=== PATIENT | female | born 1950 | race Two or more races ===

== ENCOUNTER 2025-07-02 12:58 | Inpatient (IN) | payer OTHER ==
[~2025-07-02] VITALS: Ht 149.9 cm; Wt 26.8 kg
[2025-07-02] MEDS ORDERED: METFORMIN HCL500 M3 PO (13:53)
[2025-07-02] MEDS ORDERED: FAMOTIDINE/PF 20 MG/2 ML VIAL IV ONE (15:00)
[2025-07-02] MEDS ORDERED: ONDANSETRON HCL 2 MG/ML VIAL IV ONE (15:00)
[2025-07-02] MEDS ORDERED: 0.9 % SODIUM CHLORIDE 500 ML IV ONE (15:00)
[2025-07-02] MEDS ORDERED: LABETALOL HCL 200 MG/40 ML VIAL IV ONE (15:15)
[2025-07-02] MEDS ORDERED: INSULIN REGULAR, HUMAN 1,000 UNIT/10 ML UNITS IV ONE ×2 (15:15→20:30)
[2025-07-02] MEDS ORDERED: LABETALOL HCL 100 MG/20 ML ML ONE (15:31)
[2025-07-02] MEDS ORDERED: ONDANSETRON HCL 2 MG/ML VIAL ONE (15:31)
[2025-07-02] MEDS ORDERED: FAMOTIDINE/PF 20 MG/2 ML VIAL ONE (15:33)
[2025-07-02 16:12] LABS: BASO % 0.2 % (0.1-1.2); EOS # 0.00 (0.04-0.54); EOS % 0.0 % (0.7-7.0); LYMPH # 0.94 (1.18-3.74); LYMPH % 7.4 % (19.3-53.1); MEAN PLATELET VOLUME 11.40 fl (9.4-12.4); MONO # 0.62 (0.24-0.82); MONO % 4.9 % (4.7-12.5); NEUT # 11.14 (1.56-6.13); NEUT % 87.2 % (34.0-71.1); RED CELL DISTRIBUTION WIDTH 12.7 % (11.6-14.4)
[2025-07-02 16:31] LABS: INR 1.09
[2025-07-02 17:17] LABS: ALT/SGPT 29.0 U/L (12-78); AST/SGOT 17.0 U/L (15-37); BILIRUBIN TOTAL 0.34 mg/dL (0.3-1.2); BILIRUBIN,CONJUGATED 0.11 mg/dL (0.0-0.2); BUN CREA RATIO 37.0 (7.0-25.0); CREATININE SERUM 0.76 mg/dL (0.55-1.02); GFR 74.81; GLOBULINA 3.7 G/DL (2.4-3.5); OSMOLALITY SERUM 308.0 MOSM/KG (275-295)
[2025-07-02 17:18] LABS: URINE APPEARANCE Clear; URINE BILIRRUBIN Negative (NEGATIVE); URINE BLOOD Small; URINE COLOR Yellow; URINE KETONE 15 (NEGATIVE); URINE LEUKOCYTE Negative; URINE NITRATE Negative; URINE UROBILINOGEN 0.2 E.U./dl
[2025-07-02 17:22] LABS: URINE BACTERIA 50.3 uL (0.0-1933); URINE EPITHELIAL CELLS 3.9 uL (0.0-38.8); URINE RBC 43.9 uL (0.0-20.8); URINE WBC 2.6 uL (0.0-23.2)
[2025-07-02 17:54] LABS: GLUCOSE FASTING 451.0 mg/dL (65-100)
[2025-07-02 18:28] LABS: URINE CAST 0.29 uL (0.0-1.40); URINE GLUCOSE >=1000 MG/DL (NEGATIVE); URINE PROTEIN 100 (NEGATIVE)
[2025-07-02] MEDS ORDERED: ENALAPRILAT DIHYDRATE 1.25 MG/ML VIAL IV ONE ×2 (20:30→21:13)
[2025-07-02] MEDS ORDERED: PIPERACILLIN/TAZOBACTAM SODIUM 3.375 GM VIAL IV ONE ×2 (22:30→23:50)
[2025-07-03] MEDS ORDERED: 0.9 % SODIUM CHLORIDE 1,000 ML IV SCH (14:00)
[2025-07-03] MEDS ORDERED: CEFTRIAXONE SODIUM 2,000 MG in 0.9 % SODIUM CHLORIDE 100 ML IV SCH (14:03)
[2025-07-03] MEDS ORDERED: FAMOTIDINE/PF 20 MG in 0.9 % SODIUM CHLORIDE 8 ML IV PUSH SCH (14:04)
[2025-07-03] MEDS ORDERED: ONDANSETRON HCL 4 MG in 0.9 % SODIUM CHLORIDE 50 ML IV PRN (14:15)
[2025-07-03] MEDS ORDERED: DEXTROSE 50 % IN WATER 0.5 G/ML DISP.SYRIN IV PRN (14:15)
[2025-07-03] MEDS ORDERED: INSULIN LISPRO 1,000 UNIT/10 ML UNITS SUBCUTANEO PRN (14:15)
[2025-07-03] MEDS ORDERED: MORPHINE SULFATE 2 MG/ML SYRINGE IV PRN (14:15)
[2025-07-03] MEDS ORDERED: ENALAPRILAT DIHYDRATE 1.25 MG/ML VIAL IV PRN (14:15)
[2025-07-03] MEDS ORDERED: METRONIDAZOLE/SODIUM CHLORIDE 500 MG/100 ML PIGGYBACK IV ONE (15:36)
[2025-07-03] MEDS ORDERED: FAMOTIDINE/PF 20 MG/2 ML VIAL ONE (15:36)
[2025-07-03] MEDS ORDERED: CEFTRIAXONE SODIUM 2,000 MG VIAL ONE (15:36)
[2025-07-03 22:40] VITALS: BP 161/66; O2SAT 100
[2025-07-04 01:31] VITALS: BP 152/72; O2SAT 98
[2025-07-04 08:28] LABS: TSH 0.268 uIU/mL (0.358-3.74)
[2025-07-04] MEDS ORDERED: ENOXAPARIN SODIUM 30 MG/0.3 ML SYRINGE SUBCUTANEO SCH (09:00)
[2025-07-04 10:03] VITALS: BP 126/64; O2SAT 98
[2025-07-04 17:10] VITALS: BP 156/68; O2SAT 100
[2025-07-05 01:55] VITALS: BP 154/73; O2SAT 96
[2025-07-05] MEDS ORDERED: DIATRIZOATE MEGLUMINE, SODIUM 30 ML BOTTLE PO NR (09:00)
[2025-07-05 09:27] VITALS: BP 180/68; O2SAT 100
[2025-07-05 13:53] LABS: BASO % 0.1 % (0.1-1.2); EOS # 0.10 (0.04-0.54); EOS % 1.3 % (0.7-7.0); LYMPH # 0.91 (1.18-3.74); LYMPH % 11.8 % (19.3-53.1); MEAN PLATELET VOLUME 10.60 fl (9.4-12.4); MONO # 0.68 (0.24-0.82); MONO % 8.8 % (4.7-12.5); NEUT # 5.99 (1.56-6.13); NEUT % 77.6 % (34.0-71.1); RED CELL DISTRIBUTION WIDTH 12.1 % (11.6-14.4)
[2025-07-05 14:17] LABS: ALT/SGPT 19.0 U/L (12-78); AST/SGOT 18.0 U/L (15-37); BILIRUBIN TOTAL 0.36 mg/dL (0.3-1.2); BUN CREA RATIO 21.0 (7.0-25.0); CREATININE SERUM 0.39 mg/dL (0.55-1.02); GFR 161.55; GLOBULINA 2.8 G/DL (2.4-3.5); GLUCOSE FASTING 145.0 mg/dL (65-100); OSMOLALITY SERUM 286.0 MOSM/KG (275-295)
[2025-07-05 17:21] VITALS: BP 147/63; O2SAT 100
[2025-07-06 03:03] VITALS: BP 145/69; O2SAT 98
[2025-07-06 09:16] VITALS: BP 101/77; O2SAT 99
[2025-07-06 17:38] VITALS: BP 131/67
[2025-07-07 01:24] VITALS: BP 148/60; O2SAT 97
[2025-07-07 05:43] LABS: BASO % 0.4 % (0.1-1.2); EOS # 0.21 (0.04-0.54); EOS % 4.0 % (0.7-7.0); LYMPH # 1.25 (1.18-3.74); LYMPH % 23.9 % (19.3-53.1); MEAN PLATELET VOLUME 11.40 fl (9.4-12.4); MONO # 0.89 (0.24-0.82); NEUT # 2.85 (1.56-6.13); NEUT % 54.3 % (34.0-71.1); RED CELL DISTRIBUTION WIDTH 12.0 % (11.6-14.4)
[2025-07-07 06:18] LABS: MONO % 17.0 % (4.7-12.5)
[2025-07-07 06:40] LABS: BUN CREA RATIO 16.0 (7.0-25.0); CREATININE SERUM 0.31 mg/dL (0.55-1.02); GFR 210.56; GLUCOSE FASTING 156.0 mg/dL (65-100); OSMOLALITY SERUM 287.0 MOSM/KG (275-295)
[2025-07-07 09:01] VITALS: BP 144/70; O2SAT 100
[2025-07-07] MEDS ORDERED: MAGNESIUM SULFATE IN WATER 50 ML IV NR (11:00)
[2025-07-07] MEDS ORDERED: POTASSIUM CHLORIDE 10 MEQ CAPSULE PO NR (12:00)
[2025-07-07] MEDS ORDERED: POTASSIUM CHLORIDE IN WATER 100 ML IV SCH (13:00)
[2025-07-07 13:27] LABS: URINE APPEARANCE Clear; URINE BACTERIA 1.2 uL (0.0-1933); URINE BILIRRUBIN Negative (NEGATIVE); URINE BLOOD Negative; URINE CAST 0.00 uL (0.0-1.40); URINE COLOR Yellow; URINE EPITHELIAL CELLS 1.3 uL (0.0-38.8); URINE GLUCOSE >=1000 MG/DL (NEGATIVE); URINE KETONE Negative (NEGATIVE); URINE LEUKOCYTE Negative; URINE NITRATE Negative; URINE PROTEIN Negative (NEGATIVE); URINE RBC 17.1 uL (0.0-20.8); URINE UROBILINOGEN 0.2 E.U./dl; URINE WBC 0.1 uL (0.0-23.2)
[2025-07-07 15:30] VITALS: BP 137/62; O2SAT 99
[2025-07-08 01:16] VITALS: BP 150/53; O2SAT 97
[2025-07-08 07:21] LABS: BUN CREA RATIO 15.0 (7.0-25.0); CREATININE SERUM 0.33 mg/dL (0.55-1.02); GFR 195.9; GLUCOSE FASTING 162.0 mg/dL (65-100); OSMOLALITY SERUM 286.0 MOSM/KG (275-295)
[2025-07-08] MEDS ORDERED: INSULIN NPH HUM/REG INSULIN HM 1,000 UNIT/10 ML UNITS SUBCUTANEO SCH (08:00)
[2025-07-08 09:40] VITALS: BP 150/67; O2SAT 99
== END 2025-07-08 13:59 | disposition home or self-care (01) | DRG 389 ==
LOC: ER 12:59 → SEC-K 07-03 14:05 → MEDJ 07-03 14:05
PROVIDERS: General Practice; Internal Medicine Endocrinology, Diabetes & Metabolism; Surgery; ADMIT Internal Medicine; ATTEND Internal Medicine
PROC: BW28YZZ Computerized Tomography (CT Scan) of Head using Other Contrast (ICD-10-PCS; principal; 2025-07-02)
PROC: BW21YZZ Computerized Tomography (CT Scan) of Abdomen and Pelvis using Other Contrast (ICD-10-PCS; 2025-07-02)
PROC: BW21ZZZ Computerized Tomography (CT Scan) of Abdomen and Pelvis (ICD-10-PCS; 2025-07-05)
DX: K56.0 Paralytic ileus (principal); R78.81 Bacteremia; I10 Essential (primary) hypertension; E11.65 Type 2 diabetes mellitus with hyperglycemia; R14.0 Abdominal distension (gaseous); Z79.4 Long term (current) use of insulin